=== PATIENT | female | born 1945 ===

== ENCOUNTER → 2024-01-11 10:50 | Outpatient (REF) | payer MEDICARE, OTHER, SELFPAY ==
[2024-01-11 12:12] LABS: % Basophils 0.7 % (0-2); % Eosinophils 1.8 % (0-6); % Immature Granulocytes 0.3 % (0-0.5); % Monocytes 10.2 % (1.7-9.3); Absolute Basophils 0.1 10^3/uL (0-0.2); Absolute Eosinophils 0.2 10^3/uL (0-0.7); Absolute Lymphocytes 4.3 10^3/uL (1.2-3.4); Absolute Neutrophils 4.6 10^3/uL (1.4-6.5); Hematocrit 39.2 % (37.0-47.0); Hemoglobin 12.9 g/dL (12.0-16.0); Mean Corp Hgb Conc. 32.9 g/dL (33.0-37.0); Mean Corpuscular Hgb 31.5 pg (27.0-31.0); Mean Corpuscular Volume 95.6 fL (81.0-99.0); Mean Platelet Volume 11.4 fL (7.4-10.4); Nucleated Red Blood Cells % 0 %; Platelet Count 211 10^3/uL (130-400); Red Cell Dist. Width 14.4 % (11.5-14.5); White Blood Cell Count 10.2 10^3/uL (4.8-10.8)
[2024-01-11 12:30] LABS: ALT (SGPT) 20 U/L (0-35); AST (SGOT) 43 U/L (14-36); Alkaline Phosphatase 94 U/L (38-126); Blood Urea Nitrogen 14 mg/dl (7-17); Calcium 8.8 mg/dl (8.4-10.2); Carbon Dioxide 25 mmol/L (22-30); Chloride 105 mmol/L (98-107); Glucose 126 mg/dl (70-99); HDL Cholesterol 30 mg/dl; LDL Cholesterol, Calculated 33 mg/dl; Magnesium 1.8 mg/dl (1.6-2.3); Sodium 137 mmol/L (135-145); Total Bilirubin 1.3 mg/dl (0.2-1.3); Total Cholesterol 86 mg/dl (50-199); Total Protein 7.1 g/dl (6.3-8.2); Triglyceride 117 mg/dl (10-149); Very Low Density Lipoprotein 23 mg/dl (0-30); eGFR > 60.00
[2024-01-11 13:31] LABS: Urine Albumin Trace (Neg - Trace); Urine Bilirubin Negative (Negative); Urine Character Very Cloudy (Clear); Urine Color Yellow; Urine Glucose Negative (Negative); Urine Ketone Trace (Negative); Urine Leukocyte 2+ (Negative); Urine Nitrite Positive (Negative); Urine Occult Blood 3+ (Negative); Urine Urobilinogen Negative (Neg - 1+)
[2024-01-11 13:37] LABS: Urine Bacteria Many (Negative); Urine White Cell 80-90 /HPF (0-5)
== END ==
LOC: OLABN 10:50
PROVIDERS: ATTENDING PHYSICIAN Student in an Organized Health Care Education/Training Program
DX: R39.15 Urgency of urination (principal); E78.5 Hyperlipidemia, unspecified
CPT/HCPCS: 36415; 80053; 80061; 81003; 81015; 83735; 85025; 87086; 87088; 87186

== ENCOUNTER → 2024-03-07 09:01 | Outpatient (REF) | payer MEDICARE, OTHER, SELFPAY ==
[2024-03-07 10:06] LABS: % Basophils 0.4 % (0-2); % Eosinophils 2.5 % (0-6); % Immature Granulocytes 0.4 % (0-0.5); % Lymphocytes 46.7 % (20.5-51.1); % Monocytes 8.5 % (1.7-9.3); % Neutrophils 41.5 % (42.2-75.2); Absolute Basophils 0.1 10^3/uL (0-0.2); Absolute Eosinophils 0.3 10^3/uL (0-0.7); Absolute Lymphocytes 5.3 10^3/uL (1.2-3.4); Absolute Neutrophils 4.7 10^3/uL (1.4-6.5); Hematocrit 38.7 % (37.0-47.0); Hemoglobin 12.8 g/dL (12.0-16.0); Mean Corp Hgb Conc. 33.1 g/dL (33.0-37.0); Mean Corpuscular Hgb 31.7 pg (27.0-31.0); Mean Corpuscular Volume 95.8 fL (81.0-99.0); Mean Platelet Volume 11.1 fL (7.4-10.4); Nucleated Red Blood Cells % 0 %; Platelet Count 182 10^3/uL (130-400); Red Blood Cell Count 4.04 10^6/uL (4.20-5.40); Red Cell Dist. Width 15.8 % (11.5-14.5); White Blood Cell Count 11.4 10^3/uL (4.8-10.8)
[2024-03-07 10:21] LABS: ALT (SGPT) 16 U/L (0-35); AST (SGOT) 35 U/L (14-36); Albumin 2.8 g/dl (3.5-5.0); Alkaline Phosphatase 112 U/L (38-126); Blood Urea Nitrogen 18 mg/dl (7-17); Calcium 8.7 mg/dl (8.4-10.2); Carbon Dioxide 26 mmol/L (22-30); Chloride 106 mmol/L (98-107); Glucose 85 mg/dl (70-99); HDL Cholesterol 36 mg/dl; LDL Cholesterol, Calculated 17 mg/dl; Potassium 4.3 mmol/L (3.5-5.1); Sodium 136 mmol/L (135-145); Total Bilirubin 0.9 mg/dl (0.2-1.3); Total Cholesterol 83 mg/dl (50-199); Total Protein 6.7 g/dl (6.3-8.2); Triglyceride 151 mg/dl (10-149); Very Low Density Lipoprotein 30 mg/dl (0-30); eGFR > 60.00
== END ==
LOC: OLABN 09:01
PROVIDERS: ATTENDING PHYSICIAN Student in an Organized Health Care Education/Training Program
DX: E78.5 Hyperlipidemia, unspecified (principal); Z79.899 Other long term (current) drug therapy
CPT/HCPCS: 36415; 80053; 80061; 83036; 85025

== ENCOUNTER → 2025-03-09 10:27 | Outpatient (REF) | payer MEDICARE, OTHER, SELFPAY ==
[2025-03-09 11:51] LABS: ALT (SGPT) 20 U/L (0-35); AST (SGOT) 36 U/L (14-36); Albumin 3.1 g/dl (3.5-5.0); Alkaline Phosphatase 118 U/L (38-126); Blood Urea Nitrogen 18 mg/dl (7-17); Calcium 9.4 mg/dl (8.4-10.2); Carbon Dioxide 19 mmol/L (22-30); Chloride 110 mmol/L (98-107); Glucose 105 mg/dl (70-99); Potassium 4.6 mmol/L (3.5-5.1); Sodium 140 mmol/L (135-145); Total Bilirubin 0.9 mg/dl (0.2-1.3); Total Protein 6.8 g/dl (6.3-8.2); eGFR > 60.00
[2025-03-09 12:18] LABS: Glycohemoglobin (HgbA1c) 7.7 % (4.0-5.6)
== END ==
LOC: OLABN 10:27
PROVIDERS: ATTENDING PHYSICIAN Student in an Organized Health Care Education/Training Program
DX: E11.9 Type 2 diabetes mellitus without complications (principal); E78.5 Hyperlipidemia, unspecified; I10 Essential (primary) hypertension
CPT/HCPCS: 36415; 80053; 83036

== ENCOUNTER → 2025-03-10 09:18 | Outpatient (REF) | payer MEDICARE, OTHER, SELFPAY ==
[2025-03-10 09:47] LABS: % Basophils 0.4 % (0-2); % Eosinophils 1.5 % (0-6); % Immature Granulocytes 0.4 % (0-0.5); % Lymphocytes 42.6 % (20.5-51.1); % Monocytes 7.8 % (1.7-9.3); % Neutrophils 47.3 % (42.2-75.2); Absolute Basophils 0.1 10^3/uL (0-0.2); Absolute Eosinophils 0.2 10^3/uL (0-0.7); Absolute Immature Granulocytes 0.1 10^3/uL (0-0.05); Absolute Lymphocytes 5.3 10^3/uL (1.2-3.4); Absolute Neutrophils 5.9 10^3/uL (1.4-6.5); Hematocrit 46.4 % (37.0-47.0); Hemoglobin 15.3 g/dL (12.0-16.0); Mean Corpuscular Hgb 32.7 pg (27.0-31.0); Mean Corpuscular Volume 99.1 fL (81.0-99.0); Mean Platelet Volume 11.4 fL (7.4-10.4); Nucleated Red Blood Cells % 0 %; Platelet Count 208 10^3/uL (130-400); Red Blood Cell Count 4.68 10^6/uL (4.20-5.40); Red Cell Dist. Width 15.5 % (11.5-14.5); White Blood Cell Count 12.4 10^3/uL (4.8-10.8)
[2025-03-10 10:04] LABS: HDL Cholesterol 35 mg/dl; LDL Cholesterol, Calculated 23 mg/dl; Total Cholesterol 91 mg/dl (50-199); Triglyceride 165 mg/dl (10-149); Very Low Density Lipoprotein 33 mg/dl (0-30)
== END ==
LOC: OLABN 09:18
PROVIDERS: ATTENDING PHYSICIAN Student in an Organized Health Care Education/Training Program
DX: E78.5 Hyperlipidemia, unspecified (principal)
CPT/HCPCS: 36415; 80061; 85025

== ENCOUNTER → 2025-03-27 21:00 | Outpatient (REF) | payer MEDICARE, OTHER, SELFPAY ==
[2025-03-28 11:15] LABS: Urine Albumin 2+ (Neg - Trace); Urine Bilirubin Negative (Negative); Urine Character Cloudy (Clear); Urine Color Yellow; Urine Glucose 3+ (Negative); Urine Ketone Negative (Negative); Urine Leukocyte 3+ (Negative); Urine Nitrite Positive (Negative); Urine Occult Blood 2+ (Negative); Urine Specific Gravity 1.025 (<1.030); Urine Urobilinogen Negative (Neg - 1+)
[2025-03-28 11:24] LABS: Urine Bacteria Many (Negative); Urine Red Blood Cell 0-2 /HPF (0-2); Urine Squamous Cell 0-2 /LPF (Few); Urine White Cell 40-50 /HPF (0-5)
== END ==
LOC: OLABN 21:00
PROVIDERS: ATTENDING PHYSICIAN Student in an Organized Health Care Education/Training Program
DX: R82.90 Unspecified abnormal findings in urine (principal)
CPT/HCPCS: 81003; 81015; 87077; 87086